=== PATIENT | male | born 1970 | race Asian ===

== ENCOUNTER 2022-05-14 13:47 | Emergency (ER) | payer OTHER ==
[~2022-05-14] VITALS: Ht 172.7 cm; Wt 104.5 kg
[2022-05-14] MEDS ORDERED: VERA240T96 PO (13:56)
[2022-05-14] MEDS ORDERED: LOSA-382 PO (13:56)
[2022-05-14] MEDS ORDERED: ALLO-45 PO (13:56)
[2022-05-14 17:00] VITALS: BP 133/71
[2022-05-14] MEDS ORDERED: ACETAMINOPHEN 500 MG TABLET PO ONE (18:00)
== END 2022-05-14 19:55 | disposition home or self-care (01) ==
LOC: EMS 14:00
DX: S06.0X0A Concussion without loss of consciousness, initial encounter (principal); I10 Essential (primary) hypertension; Z88.6 Allergy status to analgesic agent; W19.XXXA Unspecified fall, initial encounter; Y93.89 Activity, other specified; Y92.89 Other specified places as the place of occurrence of the external cause; Y99.8 Other external cause status
CPT/HCPCS: 70450; 72040; 99284